=== PATIENT | female | born 1970 | race Caucasian/White ===

== ENCOUNTER 2023-01-23 14:08 | Observation (INO) | payer OTHER ==
[~2023-01-23] VITALS: Ht 170.1 cm; Wt 106.8 kg
[2023-01-23 14:43] VITALS: BP 127/80
[2023-01-23 18:30] LABS: BASO % 0.2 % (0.0-1.0); EOS % 0.2 % (1.0-4.0); HEMATOCRIT 45.5 % (37.0-47.0); LYMPH % 11.1 % (27.0-41.0); MEAN CELL VOLUME 91.5 fl (81.0-99.0); MEAN CORPUSCULAR HGB 30.8 pg (27.0-31.0); MEAN CORPUSCULAR HGB CONC 33.6 g/dl (33.0-37.0); MEAN PLATELET VOLUME 9.8 fl (9.6-12.3); MONO # 0.3 10*3/uL (0.1-1.0); MONO % 3.7 % (3.0-9.0); NEUT # 7.3 10*3/uL (2.3-7.9); NEUT % 84.6 % (47.0-73.0); PLATELET COUNT AUTOMATED 221 10*3/uL (130-400); RED BLOOD COUNT 4.97 10*6/uL (4.10-5.10); RED CELL DISTRI WIDTH 12.5 % (0-14.5); WHITE BLOOD COUNT 8.7 10*3/uL (4.8-10.8)
[2023-01-23 18:45] LABS: ALKALINE PHOSPHATASE 71 U/L (46-116); BUN 11 mg/dl (9-23); CHLORIDE 107 mmol/L (98-107); LIPASE 28 U/L (12-53); POTASSIUM 4.1 mmol/L (3.4-5.1); SGPT/ALT 17 U/L (10-49); TOTAL PROTEIN 7.5 gm/dL (6.0-8.0)
[2023-01-23] MEDS ORDERED: OXYBUTYNIN10 MG PO (21:04)
[2023-01-23] MEDS ORDERED: AMLODIPINE BESY10 MG PO (21:05)
[2023-01-23] MEDS ORDERED: HYDROXYZINE PAM25 M1 PO (21:06)
[2023-01-23] MEDS ORDERED: VITAMIN D250 MCG PO (21:08)
[2023-01-23] MEDS ORDERED: PANTOPRAZOLE SO40 MG PO (21:08)
[2023-01-23] MEDS ORDERED: COLACE100 MG PO (21:09)
[2023-01-23 22:14] VITALS: BP 137/74
[2023-01-24 06:05] LABS: BASO # 0.1 10*3/uL (0.0-0.1); BASO % 0.6 % (0.0-1.0); EOS # 0.2 10*3/uL (0.0-0.4); EOS % 2.1 % (1.0-4.0); HEMATOCRIT 41.7 % (37.0-47.0); LYMPH # 1.6 10*3/uL (1.3-4.4); LYMPH % 19.6 % (27.0-41.0); MEAN CELL VOLUME 92.7 fl (81.0-99.0); MEAN CORPUSCULAR HGB 30.7 pg (27.0-31.0); MEAN CORPUSCULAR HGB CONC 33.1 g/dl (33.0-37.0); MEAN PLATELET VOLUME 9.9 fl (9.6-12.3); MONO # 0.8 10*3/uL (0.1-1.0); MONO % 9.5 % (3.0-9.0); NEUT # 5.5 10*3/uL (2.3-7.9); PLATELET COUNT AUTOMATED 193 10*3/uL (130-400); RED CELL DISTRI WIDTH 12.7 % (0-14.5)
[2023-01-24 06:17] LABS: BUN 9 mg/dl (9-23); CHLORIDE 108 mmol/L (98-107); POTASSIUM 4.1 mmol/L (3.4-5.1)
[2023-01-24 09:07] VITALS: BP 134/68
[2023-01-24 15:00] VITALS: BP 149/80
[2023-01-24] MEDS ORDERED: TRULANCE 3MG (15:11)
[2023-01-24 20:00] VITALS: BP 128/65
[2023-01-25] VITALS: BP 133/79
[2023-01-25 08:00] VITALS: BP 143/66
[2023-01-25] MEDS ORDERED: CIPRO500 MG PO (08:22)
[2023-01-25] MEDS ORDERED: METRONIDAZOLE500 M1 PO (08:22)
== END 2023-01-25 10:50 | disposition home or self-care (01) ==
LOC: ED 14:08 → EDHOLD 20:50 → 4E 01-24 15:27
PROVIDERS: Internal Medicine; ADMIT Internal Medicine; ATTEND Internal Medicine
DX: K57.32 Diverticulitis of large intestine without perforation or abscess without bleeding (principal); I10 Essential (primary) hypertension; F41.1 Generalized anxiety disorder; Z88.1 Allergy status to other antibiotic agents; Z79.899 Other long term (current) drug therapy

== ENCOUNTER → 2023-02-19 | Outpatient (CLI) | payer OTHER ==
[~2023-02-19] MED LIST: AMLODIPINE BESY10 MG PO; CIPRO500 MG PO; COLACE100 MG PO; HYDROXYZINE PAM25 M1 PO; METRONIDAZOLE500 M1 PO; OXYBUTYNIN10 MG PO; PANTOPRAZOLE SO40 MG PO; TRULANCE 3MG; VITAMIN D250 MCG PO
== END | disposition home or self-care (01) ==
LOC: US 01-09 10:30
PROVIDERS: ATTEND Internal Medicine
DX: I65.23 Occlusion and stenosis of bilateral carotid arteries (principal)

== ENCOUNTER 2023-04-02 12:48 | Emergency (ER) | payer OTHER ==
[~2023-04-02] VITALS: Ht 170.1 cm; Wt 115.7 kg
[2023-04-02] MEDS ORDERED: HYDROCODONE-AC1 EAC1 PO (16:10)
== END 2023-04-02 16:14 | disposition home or self-care (01) ==
LOC: ED 12:48
DX: S46.911A Strain of unspecified muscle, fascia and tendon at shoulder and upper arm level, right arm, initial encounter (principal); Z90.49 Acquired absence of other specified parts of digestive tract; Z90.711 Acquired absence of uterus with remaining cervical stump; Z79.899 Other long term (current) drug therapy; Z88.1 Allergy status to other antibiotic agents; X58.XXXA Exposure to other specified factors, initial encounter; Y93.89 Activity, other specified; Y92.89 Other specified places as the place of occurrence of the external cause; Y99.8 Other external cause status